=== PATIENT | female | born 1970 | race Two or more races ===

== ENCOUNTER 2017-03-16 09:16 | Outpatient (CLI) | payer OTHER ==
[~2017-03-16 09:16] MED LIST: ACIDOPHILUS1 EAC3 PO; AMARYL 4 MG; DISCOVISC DISP S1 ML; PAXIL30 MG; SYNTHROID50 MCG; VENTOLIN HFA18 GM; VIRAMUNE XR400 MG; ZANTAC150 MG PO
== END 2017-03-16 12:26 | disposition home or self-care (01) ==
LOC: MRI 09:16
DX: M79.672 Pain in left foot (principal)
CPT/HCPCS: 73718

== ENCOUNTER 2017-04-18 10:41 | Emergency (ER) | payer OTHER ==
[~2017-04-18] VITALS: Ht 175.3 cm; Wt 131.1 kg
[2017-04-18] MEDS ORDERED: AVAPRO150 MG PO (11:03)
[2017-04-18] MEDS ORDERED: SYNTHROID50 MCG PO (11:03)
[2017-04-18] MEDS ORDERED: HYDROCHLOROTHIA25 MG PO (11:04)
[2017-04-18] MEDS ORDERED: DESCOVY 200-251 EACH PO (11:05)
[2017-04-18] MEDS ORDERED: VIRAMUNE XR400 MG PO (11:05)
[2017-04-18] MEDS ORDERED: PAXIL30 MG PO (11:06)
[2017-04-18] MEDS ORDERED: AMARIL PO (11:06)
== END 2017-04-18 21:50 | disposition home or self-care (01) ==
LOC: ER 10:41
DX: K52.9 Noninfective gastroenteritis and colitis, unspecified (principal)